=== PATIENT | male | born 1945 | race Caucasian/White ===

== ENCOUNTER 2017-07-25 15:32 | Emergency (ER) | payer BC, MEDICARE ==
--- NOTE | 2017-07-25 15:39 | EDM.PDOC ---
ED HPI GENERAL MEDICAL PROBLEM - General Chief Complaint: Laceration Stated Complaint: FINGER CUT [id number] Time Seen by Provider: 07/25/17 15:39 Source of Information: Reports: Patient, Family, Old Records, RN, RN Notes Reviewed History Limitations: Reports: No Limitations - History of Present Illness INITIAL COMMENTS - FREE TEXT/NARRATIVE: Patient presented to the ER with a fishhook in his left 4th finger which occurred while he was fishing today. Onset: Today Location: Reports: Upper Extremity, Left Quality: Reports: Ache Severity: Mild Improves with: Reports: None Worsens with: Reports: None Associated Symptoms: Reports: No Other Symptoms - Related Data Allergies Allergy/AdvReac Type Severity Reaction Status Date / Time No Known Allergies Allergy Verified 07/25/17 16:09 Home Meds: Home Meds LORazepam [Ativan] 0.5 mg PO BEDTIME 03/31/14 [History] buPROPion [Wellbutrin] 100 mg PO DAILY 03/31/14 [History] lamoTRIgine [LaMICtal] 150 mg PO BEDTIME 03/31/14 [History] Past Medical History - Past Health History Medical/Surgical History: Denies Medical/Surgical History Social & Family History - Family History Family Medical History: Noncontributory - Tobacco Use Smoking Status *Q: Never Smoker Second Hand Smoke Exposure: No - Alcohol Use Days Per Week of Alcohol Use: 0 - Recreational Drug Use Recreational Drug Use: No ED ROS GENERAL - Review of Systems Review Of Systems: ROS reveals no pertinent complaints other than HPI. ED EXAM, GENERAL - Physical Exam Exam: See Below Exam Limited By: No Limitations General Appearance: Alert, WD/WN, No Apparent Distress Respiratory/Chest: No Respiratory Distress Extremities: Other (fish hook stuck in right distal 4th finger.) Neurological: Alert, Oriented, CN II-XII Intact, Normal Cognition, Normal Gait, Normal Reflexes, No Motor/Sensory Deficits Psychiatric: Normal Affect, Normal Mood ED GENERAL MEDICAL PROCEDURES - Additional/Other Procedure(s) Other (Free Text) Procedure(s): Fish hook removal left 4th finger. Area cleaned and prepped by RN with hibiclens and sterile water. Area of fish hook locally blocked with lidocaine 1 % 5cc. Using clean tech. the eye of the hook and lure were cut free and removed with side cutter. The hook shank grasped with needle nosed plier and advanced until the hook and linda were exposed through the skin and removed with side cutter. The remaining hook backed out the entry wound. No residual foreign body. Wound was cleansed, and dried, bacitracin ointment applied, and dressing by RN. No complications. T-dap given. Course - Vital Signs Last Recorded V/S: Last Vital Signs Temp 35.8 C 07/25/17 15:35 Pulse 71 07/25/17 15:35 Resp 16 07/25/17 15:35 BP Pulse Ox 98 07/25/17 15:35 - Orders/Labs/Meds Orders: Active Orders 24 hr Category Date Time Status Vaccines to be Administered [RC] PER UNIT ROUTINE Care 07/25/17 16:10 Active Meds: Medications Discontinued Medications Generic Name Dose Route Start Last Admin Trade Name Dadaq PRN Reason Stop Dose Admin Bacitracin 1 dose 07/25/17 16:10 07/25/17 16:20 Bacitracin Oint 1 Gm TOP 07/25/17 16:11 1 dose ONETIME ONE Administration Diphtheria/Tetanus/Acell Pertussis 0.5 ml 07/25/17 16:10 07/25/17 16:20 Adacel IM 07/25/17 16:11 0.5 ml .ONCE ONE Administration Lidocaine HCl 30 ml 07/25/17 15:42 07/25/17 16:20 Xylocaine-Mpf 1% INJECT 07/25/17 15:43 30 ml ONETIME ONE Administration Departure - Departure Time of Disposition: 16:19 Disposition: Home, Self-Care 01 Condition: Good Clinical Impression: [place] injury to finger Qualifiers: Encounter type: initial encounter Laterality: right Qualified Code(s): S69.91XA - Unspecified injury of right wrist, hand and finger(s), initial encounter - Discharge Information Instructions: Puncture Wound, [id number] Referrals: PCP,Not In Area [Primary Care Provider] - Forms: ED Department Discharge Additional Instructions: RX: Cephalexin 500mg. RX: Bactroban ointment 2%. Return to ER or see your doctor if any signs of infection develop. - My Orders Last 24 Hours: My Active Orders 07/25/17 16:10 Vaccines to be Administered [RC] PER UNIT ROUTINE - Assessment/Plan Last 24 Hours: My Active Orders 07/25/17 16:10 Vaccines to be Administered [RC] PER UNIT ROUTINE
[2017-07-25] MEDS ORDERED: Lidocaine 1% 30 ML SDV INJECT ONE (15:42)
[2017-07-25] MEDS ORDERED: Bacitracin Oint 1 GM U/D Packet TOP ONE (16:10)
[2017-07-25] MEDS ORDERED: Diphtheria,Pertussis(Acell),Tetanus Vaccine 0.5 ML SDV IM ONE (16:10)
== END 2017-07-25 16:29 | disposition home or self-care (01) ==
LOC: DL.ED 15:32
DX: S60.455A Superficial foreign body of left ring finger, initial encounter (principal); Z23 Encounter for immunization; W45.8XXA Other foreign body or object entering through skin, initial encounter; Y93.89 Activity, other specified; Z79.899 Other long term (current) drug therapy
CPT/HCPCS: 90471; 90715; 99282

== ENCOUNTER 2018-12-04 15:51 | Emergency (ER) | payer BC, MEDICARE ==
[2018-12-04 16:42] LABS: CHLORIDE,CL 106 mmol/L (101-111); SODIUM,NA 137 mmol/L (135-145)
--- NOTE | 2018-12-04 16:55 | CT ---
Clinical history: 73 year-old 296 pound male with lower abdominal pain (history "bowel obstruction"). Scan technique: Volume acquisition of data emergency unenhanced CT scan of the abdomen and pelvis obtained with the patient lying supine on the Siemens multislice scanner [place], [place]. All data archived in the PACS system for storage, reformatting axial/sagittal/coronal planes and study. Interpretation: Abnormal. 1. *Large 9.8 mm x 19 mm oval calcification lodged in the mid left ureter with proximal ureteral and pyelocalyceal dilatation. 2. Several tiny punctate calcifications scattered in the lower pole calyx and mid pole calyx of the ipsilateral left kidney. 3. Single 1 cm diameter upper pole cortical cyst left kidney and larger 3.1 cm diameter cyst upper pole cortex contralateral right kidney. No nephrolithiasis or signs of obstructive uropathy right kidney. Symmetric normal appearing urinary bladder. 4. Gallbladder inhomogeneously dense suggesting possible noncalcified stones. Ultrasound recommended. 5. Unenhanced liver, stomach, spleen, pancreas and adrenal glands unremarkable. No bowel obstruction, ascites or free air. 6. Pancolonic diverticulosis without current signs of inflammation. 7. Normal caliber aorta. Multilevel lumbar disc disease. Normal cardiac silhouette. Lung bases clear. CONCLUSION: Pancolonic diverticulosis. Nephrolithiasis left kidney and high-grade midureteral obstruction (ureterolith).
[2018-12-04] MEDS ORDERED: Morphine 2 MG/ML Syringe IVPUSH ONE (17:17)
--- NOTE | 2018-12-04 17:35 | EDM.PDOC ---
ED HPI GENERAL MEDICAL PROBLEM - General Chief Complaint: Abdominal Pain Stated Complaint: SEVERE STOMACH PAINS Time Seen by Provider: 12/04/18 16:20 Source of Information: Reports: Patient History Limitations: Reports: No Limitations - History of Present Illness INITIAL COMMENTS - FREE TEXT/NARRATIVE: This 73 yo male patient reports to the ED with lower abdominal pain and cramping for the past 4-5 hours. The patient reports he has a history of bowel obstructions as well as kidney stones. The patient has not take anything at this time for temporary symptom relief. Onset: Today Duration: Hour(s):, Intermittent Location: Reports: Abdomen (lower abdominal pain) Quality: Reports: Ache Severity: Moderate Improves with: Reports: None Worsens with: Reports: None Context: Reports: Other Associated Symptoms: Reports: No Other Symptoms Bilateral Lower Abdomen Pain Score (Numeric/FACES): 6 - Related Data Allergies Allergy/AdvReac Type Severity Reaction Status Date / Time No Known Allergies Allergy Verified 07/25/17 16:09 Home Meds: Home Meds LORazepam [Ativan] 0.5 mg PO BEDTIME 03/31/14 [History] buPROPion [Wellbutrin] 100 mg PO DAILY 03/31/14 [History] lamoTRIgine [LaMICtal] 150 mg PO BEDTIME 03/31/14 [History] Omeprazole 20 mg PO DAILY 12/04/18 [History] Oxybutynin [Oxybutynin ER] 5 mg PO DAILY 12/04/18 [History] Tamsulosin HCl 0.4 mg PO DAILY 12/04/18 [History] metFORMIN HCl [Metformin HCl] 500 mg PO DAILY 12/04/18 [History] Past Medical History - Past Health History Medical/Surgical History: Denies Medical/Surgical History HEENT History: Reports: Hard of Hearing Gastrointestinal History: Reports: Chronic Diarrhea, Colon Polyp, GERD, Other ( See Below) Genitourinary History: Reports: BPH Endocrine/Metabolic History: Reports: Diabetes, Type II Social & Family History - Family History Family Medical History: Noncontributory - Tobacco Use Smoking Status *Q: Never Smoker Second Hand Smoke Exposure: No - Caffeine Use Caffeine Use: Reports: Coffee - Alcohol Use Days Per Week of Alcohol Use: 3 Number of Drinks Per Day: 6 Total Drinks Per Week: 18 - Recreational Drug Use Recreational Drug Use: No ED ROS GENERAL - Review of Systems Review Of Systems: ROS reveals no pertinent complaints other than HPI. ED EXAM, GI/ABD - Physical Exam Exam: See Below Exam Limited By: No Limitations General Appearance: Alert, WD/WN, Moderate Distress Eyes: Bilateral: Normal Appearance, EOMI Ears: Normal External Exam, Normal Canal, Hearing Grossly Normal, Normal TMs Nose: Normal Inspection, Normal Mucosa, No Blood Throat/Mouth: Normal Inspection, Normal Lips, Normal Teeth, Normal Gums, Normal Oropharynx, Normal Voice, No Airway Compromise Head: Atraumatic, Normocephalic Neck: Normal Inspection, Supple, Non-Tender, Full Range of Motion Respiratory/Chest: No Respiratory Distress, Lungs Clear, Normal Breath Sounds, No Accessory Muscle Use, Chest Non-Tender Cardiovascular: Normal Peripheral Pulses, Regular Rate, Rhythm, No Edema, No Gallop, No JVD, No Murmur, No Rub GI/Abdominal Exam: Tender (diffuse lower abdomen) (Male) Exam: Deferred Rectal (Males) Exam: Deferred Back Exam: Normal Inspection, Full Range of Motion, NT Extremities: Normal Inspection, Normal Range of Motion, Non-Tender, Normal Capillary Refill, No Pedal Edema Neurological: Alert, Oriented, CN II-XII Intact, Normal Cognition, Normal Gait, Normal Reflexes, No Motor/Sensory Deficits Psychiatric: Normal Affect, Normal Mood Skin Exam: Warm, Dry, Intact, Normal Color, No Rash Lymphatic: No Adenopathy Course - Vital Signs Last Recorded V/S: Last Vital Signs Temp 36.7 C 12/04/18 16:14 Pulse 78 12/04/18 16:14 Resp 16 12/04/18 16:14 BP 132/96 H 12/04/18 16:14 Pulse Ox 99 12/04/18 16:14 - Orders/Labs/Meds Orders: Active Orders 24 hr Category Date Time Status CULTURE BLOOD [BC] Stat Lab 12/04/18 16:06 Ordered UA RFX KAVEH AND CULT IF INDIC [URIN] Urgent Lab 12/04/18 16:06 Ordered Labs: Laboratory Tests 12/04/18 12/04/18 12/04/18 Range/Units 16:08 16:08 16:08 WBC 11.1 H (5.0-10.0) 10^3/uL RBC 4.94 (4.6-6.2) 10^6/uL Hgb 15.7 (14.0-18.0) g/dL Hct 44.3 (40.0-54.0) % MCV 89.7 (80-100) fL MCH 31.8 (27.0-34.0) pg MCHC 35.4 H (33.0-35.0) g/dL Plt Count 201 (150-450) 10^3/uL Neut % (Auto) 74.3 (42.2-75.2) % Lymph % (Auto) 14.5 L (20.5-50.1) % [place] % (Auto) 7.9 (2-8) % Eos % (Auto) 3.0 (1.0-3.0) % Baso % (Auto) 0.3 (0.0-1.0) % Sodium 137 (135-145) mmol/L Potassium 4.0 (3.6-5.0) mmol/L Chloride 106 (101-111) mmol/L Carbon Dioxide 20.0 L (21.0-31.0) mmol/L Anion Gap 15.0 BUN 19 H (7-18) mg/dL Creatinine 1.1 (0.6-1.3) mg/dL Est Cr Clr Drug Dosing TNP Estimated GFR (MDRD) > 60 BUN/Creatinine Ratio 17.27 Glucose 150 H (74-105) mg/dL Lactic Acid 2.3 H (0.5-2.2) mmol/L Calcium 9.2 (8.4-10.2) mg/dl Total Bilirubin 0.7 (0.2-1.0) mg/dL AST 23 (10-42) IU/L ALT 15 (10-60) IU/L Alkaline Phosphatase 69 (42-121) IU/L Total Protein 7.4 (6.7-8.2) g/dl Albumin 3.8 (3.2-5.5) g/dl Globulin 3.6 Albumin/Globulin Ratio 1.06 Meds: Medications Discontinued Medications Generic Name Dose Route Start Last Admin Trade Name Freq PRN Reason Stop Dose Admin Morphine Sulfate 2 mg 12/04/18 17:17 12/04/18 17:56 Morphine IVPUSH 12/04/18 17:18 2 mg ONETIME ONE Administration Departure - Departure Time of Disposition: 18:09 Disposition: DC/Tfer to Acute Hospital 02 Condition: Fair Clinical Impression: Kidney stone on left side, Pancolonic diverticulosis - Discharge Information *PRESCRIPTION DRUG MONITORING PROGRAM REVIEWED*: Not Applicable *COPY OF PRESCRIPTION DRUG MONITORING REPORT IN PATIENT VISH: Not Applicable Instructions: Kidney Stones, [id number] Forms: Interfacility Transfer EMTALA Care Plan Goals: Discussed the examination, lab, history and CT results with Dr. Marques. Dr. Marques accepted the patient for continued evaluation and management. The patient will be transported by [facility]. - My Orders Last 24 Hours: My Active Orders 12/04/18 16:06 CULTURE BLOOD [BC] Stat UA RFX KAVEH AND CULT IF INDIC [URIN] Urgent - Assessment/Plan Last 24 Hours: My Active Orders 12/04/18 16:06 CULTURE BLOOD [BC] Stat UA RFX KAVEH AND CULT IF INDIC [URIN] Urgent
== END 2018-12-04 18:31 ==
LOC: DL.ED 15:51
DX: K57.30 Diverticulosis of large intestine without perforation or abscess without bleeding (principal); N20.2 Calculus of kidney with calculus of ureter; E11.9 Type 2 diabetes mellitus without complications; Z79.84 Long term (current) use of oral hypoglycemic drugs; Z79.899 Other long term (current) drug therapy
CPT/HCPCS: 36415; 74176; 80053; 83605; 85025; 87040; 96374; 99285; J2270

== ENCOUNTER 2019-08-08 12:48 | Emergency (ER) | payer BC, OTHER ==
--- NOTE | 2019-08-08 14:07 | EDM.PDOC ---
ED HPI GENERAL MEDICAL PROBLEM - General Chief Complaint: Upper Extremity Injury/Pain Stated Complaint: SHOULDER PAIN Time Seen by Provider: 08/08/19 13:45 Source of Information: Reports: Patient, Family History Limitations: Reports: No Limitations - History of Present Illness INITIAL COMMENTS - FREE TEXT/NARRATIVE: 73 year old male who presents to the ER for complains of right scapular pain for 3 days. Patient reports he was sitting in his recliner when he started having pain. The pain is rated as an 8/10 when present. He has been applying trae on it. No pain present during this visit. He denies any injury, fall or trauma. to his right scapula. Right Shoulder Pain Score (Numeric/FACES): 6 - Related Data Allergies Allergy/AdvReac Type Severity Reaction Status Date / Time No Known Allergies Allergy Verified 01/17/19 03:46 Home Meds: Home Meds LORazepam [Ativan] 1 mg PO BID 03/31/14 [History] buPROPion [Wellbutrin] 450 mg PO DAILY 03/31/14 [History] lamoTRIgine [LaMICtal] 200 mg PO BEDTIME 03/31/14 [History] Tamsulosin HCl 0.4 mg PO BID 12/04/18 [History] Aspirin 81 mg PO DAILY 01/17/19 [History] Ascorbic Acid [Vitamin C] 250 mg PO BID 05/30/19 [History] Diltiazem [Cardizem CD] 120 mg PO DAILY 05/30/19 [History] L.acidoph,Paracasei, B.lactis [Probiotic] 1 each PO DAILY 05/30/19 [History] Multivit with Calcium,Iron,Min [Essential Daily] 1 each PO DAILY 05/30/19 [ History] Pantoprazole Sodium [Protonix] 40 mg PO DAILY 05/30/19 [History] Tolterodine [Detrol] 2 mg PO BID 05/30/19 [History] Past Medical History - Past Health History Medical/Surgical History: Denies Medical/Surgical History HEENT History: Reports: Hard of Hearing, Impaired Vision Cardiovascular History: Reports: Hypertension Other Cardiovascular History: Cardioversion Respiratory History: Reports: None Gastrointestinal History: Reports: Bowel Obstruction, Chronic Diarrhea, Colon Polyp, GERD Genitourinary History: Reports: BPH, Renal Calculus Musculoskeletal History: Reports: None Neurological History: Reports: None Psychiatric History: Reports: Anxiety Endocrine/Metabolic History: Reports: Diabetes, Type II Hematologic History: Reports: None Immunologic History: Reports: None Oncologic (Cancer) History: Reports: Colon Dermatologic History: Reports: None - Infectious Disease History Infectious Disease History: Reports: Chicken Pox - Past Surgical History Head Surgeries/Procedures: Reports: None Cardiovascular Surgical History: Reports: None, Other (See Below) GI Surgical History: Reports: Appendectomy, Colon, Small Bowel Male Surgical History: Reports: Kidney Stone Extraction, Ureteral Stent Social & Family History - Family History Family Medical History: Noncontributory - Tobacco Use Smoking Status *Q: Never Smoker Second Hand Smoke Exposure: No - Caffeine Use Caffeine Use: Reports: Coffee, Tea - Recreational Drug Use Recreational Drug Use: No Review of Systems - Review of Systems Review Of Systems: Comprehensive ROS is negative, except as noted in HPI. ED EXAM, GENERAL - Physical Exam Exam: See Below Exam Limited By: No Limitations General Appearance: Alert, No Apparent Distress Neck: Normal Inspection, Supple, Non-Tender, Full Range of Motion Back Exam: Normal Inspection, Full Range of Motion, Paraspinal Tenderness ( negative for pain), Other (Patient right scapula/ paraspinal exam is negative.) Extremities: Normal Inspection, Normal Range of Motion, Non-Tender, Normal Capillary Refill, No Pedal Edema Neurological: Alert, Oriented, CN II-XII Intact, Normal Cognition, Normal Gait, No Motor/Sensory Deficits Psychiatric: Normal Affect, Normal Mood Skin Exam: Warm, Dry, Intact, Normal Color, No Rash Lymphatic: No Adenopathy Course - Vital Signs Last Recorded V/S: Last Vital Signs Temp 99.1 F 08/08/19 14:13 Pulse 69 08/08/19 14:13 Resp 18 08/08/19 14:13 BP 138/58 L 08/08/19 14:13 Pulse Ox 95 08/08/19 14:13 - Re-Assessments/Exams Free Text/Narrative Re-Assessment/Exam: Reviewed Exam findings with patient. Encouraged ice/heat intermittently every 20 minutes/hr with Tyelnol and ibuprofen as needed. Rx for flexeril given to patient. Side effects reviewed. No driving or operating equipment while taking flexeril. Patient verbalized understanding. Departure - Departure Time of Disposition: 14:00 Disposition: Home, Self-Care 01 Condition: Good Clinical Impression: Paraspinal muscle spasm - Discharge Information Instructions: Muscle Cramps and Spasms Forms: ED Department Discharge Additional Instructions: Follow up with PCP. Sepsis Event Note - Evaluation Sepsis Screening Result: No Definite Risk - Focused Exam Date Exam was Performed: 08/09/19 Time Exam was Performed: 16:28
== END 2019-08-08 14:08 | disposition home or self-care (01) ==
LOC: DL.ED 12:48
DX: M62.838 Other muscle spasm (principal); I10 Essential (primary) hypertension; E11.9 Type 2 diabetes mellitus without complications; K21.9 Gastro-esophageal reflux disease without esophagitis; F41.9 Anxiety disorder, unspecified; Z79.899 Other long term (current) drug therapy; Z79.82 Long term (current) use of aspirin
CPT/HCPCS: 99283

== ENCOUNTER 2021-02-28 14:14 | Emergency (ER) | payer BC, OTHER ==
--- NOTE | 2021-02-28 15:10 | EDM.PDOC ---
ED HPI GENERAL MEDICAL PROBLEM - General Chief Complaint: Respiratory Problem Stated Complaint: SOB [id number] Time Seen by Provider: 02/28/21 14:55 Source of Information: Reports: Patient History Limitations: Reports: No Limitations - History of Present Illness INITIAL COMMENTS - FREE TEXT/NARRATIVE: This 75 yo male patient reports to the ED with increased shortness of breath over the past 3 days. The patient reports his symptoms got much worse today. The patient reports he has been having difficulties walking too far for the past couple of months. The patient reports he did not have any recent visits with his primary care facility due to the shortness of breath. The patient has a history of diabetes, CKD, anxiety and obesity. The patient reports he is currently on a water pill and has been taking all medications as prescribed. Onset Date: 02/25/21 Duration: Constant, Getting Worse Location: Reports: Chest Quality: Reports: Other Severity: Moderate Improves with: Reports: None Worsens with: Reports: None Context: Reports: Other Associated Symptoms: Reports: Cough, Shortness of Breath - Related Data Allergies Allergy/AdvReac Type Severity Reaction Status Date / Time No Known Allergies Allergy Verified 02/28/21 15:23 Home Meds: Home Meds LORazepam [Ativan] 1 mg PO BID 03/31/14 [History] buPROPion [Wellbutrin] 450 mg PO DAILY 03/31/14 [History] lamoTRIgine [LaMICtal] 200 mg PO BEDTIME 03/31/14 [History] Tamsulosin HCl 0.4 mg PO BID 12/04/18 [History] Aspirin 81 mg PO DAILY 01/17/19 [History] Ascorbic Acid [Vitamin C] 250 mg PO BID 05/30/19 [History] Diltiazem [Cardizem CD] 120 mg PO DAILY 05/30/19 [History] L.acidoph,Paracasei, B.lactis [Probiotic] 1 each PO DAILY 05/30/19 [History] Multivit with Calcium,Iron,Min [Essential Daily] 1 each PO DAILY 05/30/19 [History] Pantoprazole Sodium [Protonix] 40 mg PO DAILY 05/30/19 [History] Tolterodine [Detrol] 2 mg PO BID 05/30/19 [History] Pantoprazole Sodium [Protonix] 40 mg PO ACDINNER 02/28/21 [History] Potassium Citrate [Potassium Citrate ER] 20 meq PO BID 02/28/21 [History] traZODone HCl [Trazodone HCl] 50 mg PO BEDTIME 02/28/21 [History] Past Medical History - Past Health History Medical/Surgical History: Denies Medical/Surgical History HEENT History: Reports: Hard of Hearing, Impaired Vision Cardiovascular History: Reports: Hypertension Other Cardiovascular History: Cardioversion Respiratory History: Reports: None Gastrointestinal History: Reports: Bowel Obstruction, Chronic Diarrhea, Colon Polyp, GERD Genitourinary History: Reports: BPH, Renal Calculus Musculoskeletal History: Reports: None Neurological History: Reports: None Psychiatric History: Reports: Anxiety Endocrine/Metabolic History: Reports: Diabetes, Type II Hematologic History: Reports: None Immunologic History: Reports: None Oncologic (Cancer) History: Reports: Colon Dermatologic History: Reports: None - Infectious Disease History Infectious Disease History: Reports: Chicken Pox - Past Surgical History Head Surgeries/Procedures: Reports: None Cardiovascular Surgical History: Reports: None, Other (See Below) GI Surgical History: Reports: Appendectomy, Colon, Small Bowel Male Surgical History: Reports: Kidney Stone Extraction, Ureteral Stent Social & Family History - Family History Family Medical History: No Pertinent Family History - Caffeine Use Caffeine Use: Reports: Coffee, Tea ED ROS GENERAL - Review of Systems Review Of Systems: Comprehensive ROS is negative, except as noted in HPI. ED EXAM, GENERAL - Physical Exam Exam: See Below Exam Limited By: No Limitations General Appearance: Alert, WD/WN, Anxious, Moderate Distress Eye Exam: Bilateral Eye: EOMI, Normal Inspection, PERRL Ears: Normal External Exam, Normal Canal, Hearing Grossly Normal, Normal TMs Nose: Normal Inspection, Normal Mucosa, No Blood Throat/Mouth: Normal Inspection, Normal Lips, Normal Teeth, Normal Gums, Normal Oropharynx, Normal Voice, No Airway Compromise Head: Atraumatic, Normocephalic Neck: Normal Inspection, Supple, Non-Tender, Full Range of Motion Respiratory/Chest: Decreased Breath Sounds (diffuse) Cardiovascular: Normal Peripheral Pulses, Regular Rate, Rhythm, No Edema, No Gallop, No JVD, No Murmur, No Rub GI/Abdominal: Normal Bowel Sounds, Soft, Non-Tender, No Organomegaly, No Distention, No Abnormal Bruit, No Mass, Other (obese) (Male) Exam: Deferred Rectal (Males) Exam: Deferred Back Exam: Normal Inspection, Full Range of Motion, NT Extremities: Normal Inspection, Normal Range of Motion, Non-Tender, Normal Capillary Refill, No Pedal Edema Neurological: Alert, Oriented, CN II-XII Intact, Normal Cognition, Normal Gait, Normal Reflexes, No Motor/Sensory Deficits Skin Exam: Warm, Dry, Intact, Normal Color, No Rash Lymphatic: No Adenopathy #1 Interpretation EKG Date: 02/28/21 Time: 14:48 Rhythm: NSR Rate (Beats/Min): 66 [place]: Normal P-Wave: Present QRS: RBBB ST-T: Normal QT: Normal Comparison: NA - No Prior EKG Course - Vital Signs Last Recorded V/S: Last Vital Signs Temp 97.5 F 02/28/21 15:32 Pulse 7 L 02/28/21 15:32 Resp 16 02/28/21 15:32 BP 113/57 L 02/28/21 15:32 Pulse Ox 98 02/28/21 15:32 - Orders/Labs/Meds Orders: Active Orders 24 hr Category Date Time Status CULTURE BLOOD [BC] Stat Lab 02/28/21 15:27 Received Labs: Laboratory Tests 02/28/21 02/28/21 02/28/21 Range/Units 15:27 15:27 15:27 WBC 8.8 (5.0-10.0) 10^3/uL RBC 5.10 (4.6-6.2) 10^6/uL Hgb 15.8 D (14.0-18.0) g/dL Hct 45.8 (40.0-54.0) % MCV 89.8 D (80-100) fL MCH 31.0 (27.0-34.0) pg MCHC 34.5 (33.0-35.0) g/dL Plt Count 189 D (150-450) 10^3/uL Neut % (Auto) 74.2 (42.2-75.2) % Lymph % (Auto) 15.1 L (20.5-50.1) % [place] % (Auto) 7.7 (2-8) % Eos % (Auto) 2.4 (1.0-3.0) % Baso % (Auto) 0.6 (0.0-1.0) % Sodium 140 (136-145) mmol/L Potassium 3.7 (3.5-5.1) mmol/L Chloride 101 (98-107) mmol/L Carbon Dioxide 30 (21-32) mmol/L Anion Gap 12.7 (7-13) mEq/L BUN 22 H (7-18) mg/dL Creatinine 1.52 H (0.70-1.30) mg/dL Est Cr Clr Drug Dosing TNP Estimated GFR (MDRD) 45 BUN/Creatinine Ratio 14.5 (No establ ref range) Glucose 144 H (70-99) mg/dL Lactic Acid 1.1 (0.4-2.0) mmol/L Calcium 8.8 (8.5-10.1) mg/dL Total Bilirubin 0.4 (0.2-1.0) mg/dL AST 19 (15-37) U/L ALT 36 (16-63) U/L Alkaline Phosphatase 65 (46-116) U/L Troponin I High Sens (<=76) pg/mL B-Natriuretic Peptide (0-100) pg/ml Total Protein 7.0 (6.4-8.2) g/dL Albumin 3.2 L (3.4-5.0) g/dL Globulin 3.8 Albumin/Globulin Ratio 0.84 08/18/21 Range/Units 15:27 WBC (5.0-10.0) 10^3/uL RBC (4.6-6.2) 10^6/uL Hgb (14.0-18.0) g/dL Hct (40.0-54.0) % MCV (80-100) fL MCH (27.0-34.0) pg MCHC (33.0-35.0) g/dL Plt Count (150-450) 10^3/uL Neut % (Auto) (42.2-75.2) % Lymph % (Auto) (20.5-50.1) % [place] % (Auto) (2-8) % Eos % (Auto) (1.0-3.0) % Baso % (Auto) (0.0-1.0) % Sodium (136-145) mmol/L Potassium (3.5-5.1) mmol/L Chloride (98-107) mmol/L Carbon Dioxide (21-32) mmol/L Anion Gap (7-13) mEq/L BUN (7-18) mg/dL Creatinine (0.70-1.30) mg/dL Est Cr Clr Drug Dosing Estimated GFR (MDRD) BUN/Creatinine Ratio (No establ ref range) Glucose (70-99) mg/dL Lactic Acid (0.4-2.0) mmol/L Calcium (8.5-10.1) mg/dL Total Bilirubin (0.2-1.0) mg/dL AST (15-37) U/L ALT (16-63) U/L Alkaline Phosphatase (46-116) U/L Troponin I High Sens 8 (<=76) pg/mL B-Natriuretic Peptide 6 (0-100) pg/ml Total Protein (6.4-8.2) g/dL Albumin (3.4-5.0) g/dL Globulin Albumin/Globulin Ratio Departure - Departure Time of Disposition: 16:19 Disposition: Home, Self-Care 01 Condition: Fair Clinical Impression: Short of breath on exertion Fatigue Qualifiers: Fatigue type: unspecified Qualified Code(s): R53.83 - Other fatigue - Discharge Information *PRESCRIPTION DRUG MONITORING PROGRAM REVIEWED*: Not Applicable *COPY OF PRESCRIPTION DRUG MONITORING REPORT IN PATIENT VISH: Not Applicable Referrals: Melinda Arriaza NP [Ordering Only Provider] - Forms: ED Department Discharge Care Plan Goals: The patient was advised of the examination, lab, EKG and x-ray results during the visit. The patient was encouraged to follow-up with his primary care facility for continued evaluation (sleep study and stress test). If the patient has any additional symptoms or concerns, the patient should either return to the emergency department or visit his primary care facility. Sepsis Event Note (ED) - Focused Exam Vital Signs: Vital Signs Temp Pulse Resp BP Pulse Ox 02/28/21 15:32 97.5 F 7 L 16 113/57 L 98 - My Orders Last 24 Hours: My Active Orders 02/28/21 15:27 CULTURE BLOOD [BC] Stat - Assessment/Plan Last 24 Hours: My Active Orders 02/28/21 15:27 CULTURE BLOOD [BC] Stat
--- NOTE | 2021-02-28 15:35 | CR ---
EXAMINATION: Chest 1V Frontal SEX: Male AGE: 75 years CLINICAL HISTORY: 75-year-old male complaining of shortness of breath (SOB). Interpretation: 1. Normal cardiac silhouette (size and configuration). Left-sided aortic arch. 2. No pulmonary vascular congestion, cephalization of flow, alveolar edema or dependent pleural fluid accumulation (no pleural effusions). 3. Generalized accentuation of the bronchovascular markings but no suspicious peripheral "groundglass" interstitial lung densities. No alveolar infiltrates. No air bronchograms. 4. No lung mass or hilar/mediastinal lymphadenopathy. Midline tracheobronchial airway unremarkable. No foreign bodies. 5. No pneumothorax or pneumomediastinum. CONCLUSION: No signs of heart failure, lung mass or lobar pneumonia.
[2021-02-28 15:55] LABS: ANION GAP 12.7 mEq/L (7-13); CHLORIDE,CL 101 mmol/L (98-107); SODIUM,NA 140 mmol/L (136-145)
== END 2021-02-28 16:40 | disposition home or self-care (01) ==
LOC: DL.ED 14:14
DX: R06.02 Shortness of breath (principal); R53.83 Other fatigue; I12.9 Hypertensive chronic kidney disease with stage 1 through stage 4 chronic kidney disease, or unspecified chronic kidney disease; E11.22 Type 2 diabetes mellitus with diabetic chronic kidney disease; N18.9 Chronic kidney disease, unspecified; K21.9 Gastro-esophageal reflux disease without esophagitis; E66.9 Obesity, unspecified; Z79.82 Long term (current) use of aspirin; Z79.899 Other long term (current) drug therapy
CPT/HCPCS: 36415; 71045; 80053; 83605; 83880; 84484; 85025; 87040; 93005; 93010; 99283; 99285-25

== ENCOUNTER 2024-08-03 21:38 | Emergency (ER) | payer BC, MEDICARE, OTHER ==
[2024-08-03] MEDS ORDERED: Sodium Chloride 0.9% 10 ML Syringe FLUSH PRN (21:43)
[2024-08-03 22:17] LABS: APPEARANCE,URINE CLEAR (CLEAR); BILIRUBIN,URINE NEGATIVE (NEGATIVE); COLOR,URINE YELLOW (YELLOW); GLUCOSE,URINE NEGATIVE (NEGATIVE); KETONES,URINE NEGATIVE (NEGATIVE); LEUKOCYTE ESTERASE,URINE NEGATIVE (NEGATIVE); NITRITE,URINE NEGATIVE (NEGATIVE); OCCULT BLOOD,URINE TRACE-LYSED (NEGATIVE); PROTEIN,URINE NEGATIVE (NEGATIVE); UROBILINOGEN,URINE 0.2 mg/dL (0.2-1.0)
[2024-08-03 22:19] LABS: BASOPHILS PERCENT AUTO 0.5 % (0.0-1.0); HEMATOCRIT 42.5 % (40.0-54.0); HEMOGLOBIN 14.5 g/dL (14.0-18.0); INR 0.9 (0.9-1.2); LYMPHOCYTES PERCENT AUTO 25.3 % (20.5-50.1); MEAN CORPUSCULAR HEMOGLOBIN 31.4 pg (27.0-34.0); MEAN CORPUSCULAR HGB CONC 34.1 g/dL (33.0-35.0); MONOCYTES PERCENT AUTO 8.4 % (2-8); NEUTROPHILS PERCENT AUTO 62.8 % (42.2-75.2); PLATELET COUNT,PLT 216 10^3/uL (150-450); PROTHROMBIN TIME 9.7 SEC (9.0-12.0); PTT,PARTIAL THROMBOPLSTIN TIME 24.4 SEC (22.0-34.0); RED BLOOD CELL COUNT 4.62 10^6/uL (4.6-6.2); WHITE BLOOD CELL COUNT,WBC 9.4 10^3/uL (5.0-10.0)
[2024-08-03 22:21] LABS: A/G RATIO 0.82; ALBUMIN 3.2 g/dL (3.4-5.0); ANION GAP 11.8 mEq/L (7-13); BILIRUBIN TOTAL 0.3 mg/dL (0.2-1.0); BUN/CREATININE RATIO 15.8 (No establ ref range); CALCIUM 8.9 mg/dL (8.5-10.1); CREATININE 1.39 mg/dL (0.70-1.30); EST CRCL DRUG DOSING (CG) 50.3 mL/min; POTASSIUM,K 3.8 mmol/L (3.5-5.1); PROTEIN TOTAL,TP 7.1 g/dL (6.4-8.2)
[2024-08-03 22:27] LABS: WBC,URINE 0-5 /HPF (0-5/HPF)
[2024-08-03 22:28] LABS: BACTERIA,URINE FEW /HPF (0-FEW/HPF); EPITHELIAL CELLS,URINE RARE /HPF (NOT SEEN); MUCUS,URINE FEW /LPF (NOT SEEN)
== END 2024-08-03 23:23 | disposition home or self-care (01) ==
LOC: DL.ED 21:38
DX: K92.1 Melena (principal); I48.91 Unspecified atrial fibrillation; I25.10 Atherosclerotic heart disease of native coronary artery without angina pectoris; I10 Essential (primary) hypertension; E11.9 Type 2 diabetes mellitus without complications; Z79.899 Other long term (current) drug therapy; Z79.82 Long term (current) use of aspirin
CPT/HCPCS: 36415; 80053; 81001; 82272; 83735; 85025; 85610; 85730; 86850; 86900; 86901; 99284